=== PATIENT | female | born 1990 | race Caucasian/White ===

== ENCOUNTER 2018-10-23 10:14 | Emergency (ER) | payer OTHER ==
--- OUTSIDE RECORDS SUMMARY | 2018-10-23 10:16 | XMS REPORT | Clinical Summary ---
:1990 Author Organization [facility] Address [address] [place] [address] Care Team Providers Name Role Phone Asked, No Pcp Primary Care Provider Unavailable Allergies No Known Allergies Medications No known medications Active Problems No known active problems Encounters Date Type Specialty Care Team Description 05/30/2018 Telephone Obstetrics and Gynecology Held, Ronda Mayers MD after 10/22/2017 Family History Medical History Relation Name Comments Heart disease Maternal Grandmother Relation Name Status Comments Maternal Grandmother Social History Tobacco Use Types Packs/Day Years Used Date Never Smoker Alcohol Use Drinks/Week oz/Week Comments Yes Sex Assigned at Date Recorded Not on file Job Start Date Occupation Industry Not on file Not on file Not on file Travel History Travel Start Travel End No recent travel history available. Last Filed Vital Signs Not on file Plan of Treatment Health Maintenance Due Date Last Done Comments INFLUENZA VACCINE 12/07/2018 Results Not on fileafter 10/22/2017 Advance Directives Patient has advance care planning documents on file. For more information, please contact:[facility] [place] [address]
--- NOTE | 2018-10-23 11:20 | RAD REPORT ---
EXAM DESCRIPTION: RAD - Chest Single View - 10/23/2018 11:07 am CLINICAL HISTORY: chest tightness Chest pain. COMPARISON: No comparisons FINDINGS: Portable technique limits examination quality. The lungs are grossly clear. The heart is normal in size. No displaced fractures. IMPRESSION: No acute intrathoracic process suspected.
[2018-10-23 11:30] LABS: Absolute Lymphocytes (CBC) 1.8 K/uL (0.7-4.9); Basophils % 0.7 % (0-1.3); Eosinophils % 4.2 % (0-4.4); Hematocrit 38.6 % (36.0-45.0); MPV 7.8 fL (7.6-11.3); Monocytes % 9.2 % (3.3-12.3); Protime INR 0.92; RBC Red Blood Cell Count 4.29 M/uL (3.86-4.86)
[2018-10-23] MEDS ORDERED: ASPIRIN 81 MG CHEWABLE TABLET ONE (11:30)
[2018-10-23 11:45] LABS: ALT/SGPT 29 U/L (12-78); AST/SGOT 18 U/L (15-37); Albumin 3.6 g/dL (3.4-5.0); Alkaline Phosphatase 93 U/L (45-117); BUN Blood Urea Nitrogen 17 mg/dL (7-18); Bicarbonate 25 mmol/L (21-32); Bilirubin Direct < 0.1 mg/dL (0-0.2); Bilirubin Total 0.3 mg/dL (0.2-1.0); Glucose Level 86 mg/dL (74-106); Magnesium 2.2 mg/dL (1.8-2.4); NT PRO-BNP 153 pg/mL (<125); Potassium 3.8 mmol/L (3.5-5.1); Protein, Total 7.6 g/dL (6.4-8.2); Sodium Level 140 mmol/L (136-145); Troponin (Emerg Dept Use Only) < 0.02 ng/mL (0.0-0.045)
[2018-10-23 11:59] LABS: Urine Blood NEGATIVE (NEG); Urine Glucose NEGATIVE (NEG); Urine Protein NEGATIVE (NEG)
--- NOTE | 2018-10-23 12:37 | EKG ---
Test Date: 2018-10-23 Test Time: 10:29:00 Process Improvement Manager: KORI MEASUREMENT RESULTS: Intervals: Rate: 91 NE: 142 QRSD: 72 QT: 360 QTc: 442 [place]: P: 32 NE: 142 QRS: 31 T: 43 INTERPRETIVE STATEMENTS: Normal sinus rhythm Normal ECG No previous ECG available for comparison Electronically Signed On 10-23-18 12:36:21 CDT by Jeffrey Medina
--- NOTE | 2018-10-23 14:59 | ER ---
Nurse's Notes [facility] Name: Sol Gresham Age: 28 yrs Sex: Female : 1990 Arrival Date: 10/23/2018 Time: 10:16 Bed 18 Private MD: None, None Diagnosis: Other chest pain Presentation: 10/23 10:20 Presenting complaint: Patient states: CHEST PAIN RADIATING TO LEFT ARM. Transition of bp care: patient was not received from another setting of care. Onset of symptoms was October 23, 2018 at 10:00. Risk Assessment: Do you want to hurt yourself or someone else? Patient reports no desire to harm self or others. Initial Sepsis Screen: Does the patient meet any 2 criteria? No. Patient's initial sepsis screen is negative. Does the patient have a suspected source of infection? No. Patient's initial sepsis screen is negative. Care prior to arrival: None. 10:20 Acuity: KEESHA 2 bp 10:20 Method Of Arrival: Ambulatory bp Triage Assessment: 10:23 General: Appears in no apparent distress. comfortable, Behavior is cooperative, bp appropriate for age, anxious. Pain: Complains of pain in chest. Cardiovascular: Chest pain is described as Pain is 6 out of 10 on a pain scale. quality is squeezing, is located in substernal area radiates to left arm(s). 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 - Social history:: Smoking status: Patient/guardian denies using tobacco. - Ebola Screening: : No symptoms or risks identified at this time. Screenin:20 Abuse screen: Denies threats or abuse. Denies injuries from another. Nutritional hj screening: No deficits noted. Tuberculosis screening: No symptoms or risk factors identified. Fall Risk None identified. Assessment: 10:20 Pain: Pain radiates to left arm Pain began 1 day ago. hj 10:20 General: Appears in no apparent distress. uncomfortable, Behavior is cooperative, hj appropriate for age, anxious. Neuro: Level of Consciousness is awake, alert, obeys commands, Oriented to person, place, time, situation, Appropriate for age. Cardiovascular: Capillary refill < 3 seconds Patient's skin is warm and dry. Respiratory: Airway is patent Respiratory effort is even, unlabored, Respiratory pattern is regular, symmetrical. GI: No signs and/or symptoms were reported involving the gastrointestinal system. : No signs and/or symptoms were reported regarding the genitourinary system. EENT: No signs and/or symptoms were reported regarding the EENT system. Derm: Musculoskeletal: No signs and/or symptoms reported regarding the musculoskeletal system. 11:42 Reassessment: Patient and/or family updated on plan of care and expected duration. Pain hj level reassessed. Patient is alert, oriented x 3, equal unlabored respirations, skin warm/dry/pink. awaiting results and POC;. Vital Signs: 10:24 BP 140 / 85; Pulse 97; Resp 20; Temp 97.7; Pulse Ox 97% ; Weight 106.59 kg; Height 5 bp ft. 4 in. (162.56 cm); 11:18 BP 135 / 94; Pulse 95; Resp 20; Pulse Ox 100% on R/A; hj 12:30 BP 125 / 80; Pulse 80; Resp 18; Pulse Ox 100% on R/A; hj 13:25 BP 118 / 79; Pulse 72; Resp 18; Pulse Ox 100% on R/A; hj 14:58 BP 125 / 80; Pulse 69; Resp 18; Pulse Ox 100% on R/A; hj 10:24 Body Mass Index 40.34 (106.59 kg, 162.56 cm) bp ED Course: 10:16 Patient arrived in ED. mr 10:17 None, None is Private Physician. mr 10:20 software test engineer on. Pulse ox on. NIBP on. hj 10:20 Patient has correct armband on for positive identification. Placed in gown. Bed in low hj position. Call light in reach. Side rails up X 1. Adult w/ patient. 10:20 Patient maintains SpO2 saturation greater than 95% on room air. hj 10:21 Triage completed. bp 10:24 Raul Boothe PA is PHCP. cp 10:24 Balbir Higgins MD is Attending Physician. cp 10:24 Arm band placed on. bp 10:46 Jewel, Claude, RN is Primary Nurse. hj 11:09 XRAY Chest (1 view) In Process Unspecified. EDWY 11:15 Initial lab(s) drawn, by ED staff, sent to lab. Inserted saline lock: 22 gauge in right hj forearm, using aseptic technique. Blood collected. 11:51 Urine collected: clean catch specimen, clear, sediment noted. 3 14:01 EKG done, by hazmat technician. reviewed by Raul PRIETO. dt2 14:35 Troponin I Sent. 14:57 No provider procedures requiring assistance completed. IV discontinued, intact, hj bleeding controlled, No redness/swelling at site. Pressure dressing applied. Administered Medications: 10:45 Drug: Aspirin Chewable Tablet 324 mg Route: PO; 11:46 Follow up: Response: No adverse reaction Outcome: 14:58 Discharged to home ambulatory. 14:58 Condition: stable 14:58 Discharge instructions given to patient, Instructed on discharge instructions, follow up and referral plans. Demonstrated understanding of instructions, follow-up care. 14:58 Discharge ordered by . [email or web address] 15:08 Patient left the ED. Signatures: Dispatcher [employer] EDWY Fabiola Joseph Henry, RN RN Raul Grissom PA PA cp Herrera, Deanna 3 Dexter Lund RN RN Isabel Parmar dt2
--- NOTE | 2018-10-23 14:59 | EDPHYS ---
Physician Documentation [facility] Name: Sol Gresham Age: 28 yrs Sex: Female : 1990 Arrival Date: 10/23/2018 Time: 10:16 Bed 18 Private MD: None, None ED Physician Balbir Higgins HPI: 10/23 10:40 This 28 yrs old Female presents to ER via Ambulatory with complaints of Chest cp Tightness, Numbness Of Arm. 10:45 The patient or guardian reports chest pain that is located primarily in the anterior cp chest wall, left. The pain radiates to the left arm. Associated signs and symptoms: Pertinent positives: numbness/tingling of left arm. The chest pain is described as tightness. Duration: The patient or guardian reports a single episode, that is still ongoing, but improving. Patient reports she was at work and became upset with ex-. Patient reported sudden onset chest tightness with pain and numbness to left arm about 30 minutes ago. 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 - Social history:: Smoking status: Patient/guardian denies using tobacco. - Ebola Screening: : No symptoms or risks identified at this time. ROS: 10:45 Constitutional: Negative for body aches, chills, fever, poor PO intake. cp 10:45 Eyes: Negative for injury, pain, redness, and discharge. cp 10:45 ENT: Negative for drainage from ear(s), ear pain, sore throat, difficulty swallowing, difficulty handling secretions. 10:45 Cardiovascular: Positive for chest pain, Negative for edema, palpitations. 10:45 Respiratory: Negative for cough, shortness of breath, wheezing. 10:45 Abdomen/GI: Negative for abdominal pain, vomiting, diarrhea, constipation. 10:45 Back: Negative for pain at rest, pain with movement. 10:45 MS/extremity: Positive for pain, paresthesias, of the left arm, Negative for injury or acute deformity, decreased range of motion. 10:45 Neuro: Negative for altered mental status, dizziness, gait disturbance, syncope, weakness. 10:45 All other systems are negative. Exam: 10:43 ECG was reviewed by the Attending Physician. cp 10:50 Constitutional: The patient appears in no acute distress, alert, awake, cp non-diaphoretic, non-toxic, well developed, well nourished, obese. 10:50 Head/Face: Normocephalic, atraumatic. cp 10:50 Eyes: Pupils equal round and reactive to light, extra-ocular motions intact. Lids and lashes normal. Conjunctiva and sclera are non-icteric and not injected. Cornea within normal limits. Periorbital areas with no swelling, redness, or edema. 10:50 ENT: External ear(s): are unremarkable, Nose: is normal, Mouth: Lips: moist, Oral mucosa: pink and intact, moist, Posterior pharynx: is normal, airway is patent, no erythema, no exudate, Voice: is normal. 10:50 Neck: ROM/movement: is normal, is supple, without pain, no range of motions limitations, no meningismus, no nuchal rigidity. 10:50 Chest/axilla: Inspection: normal, Palpation: is normal, no crepitus, no tenderness. 10:50 Cardiovascular: Rate: normal, Rhythm: regular, Pulses: Pulses are 2+ in right radial artery and left radial artery. Heart sounds: murmur, not appreciated, Edema: is not appreciated, JVD: is not appreciated. 10:50 Respiratory: the patient does not display signs of respiratory distress, Respirations: cp normal, no use of accessory muscles, no retractions, no splinting, no tachypnea, labored breathing, is not present, Breath sounds: are clear throughout, no decreased breath sounds, no stridor, no wheezing. 10:50 Abdomen/GI: Inspection: abdomen appears normal, Bowel sounds: active, all quadrants, cp Palpation: abdomen is soft and non-tender, in all quadrants, voluntary guarding, is not appreciated, involuntary guarding, is not appreciated. 10:50 Back: pain, is absent, ROM is normal. 10:50 Musculoskeletal/extremity: ROM: intact in all extremities, Pulses: noted to be 2+ in the right radial artery and left radial artery, the left arm Tingling of extremity. 10:50 Skin: no rash present. 10:50 Neuro: Orientation: to person, place \T\ time. Mentation: is normal, Cerebellar function: is grossly normal, Motor: moves all fours, strength is normal. 13:56 ECG was reviewed by the Attending Physician. cp Vital Signs: 10:24 BP 140 / 85; Pulse 97; Resp 20; Temp 97.7; Pulse Ox 97% ; Weight 106.59 kg; Height 5 bp ft. 4 in. (162.56 cm); 11:18 BP 135 / 94; Pulse 95; Resp 20; Pulse Ox 100% on R/A; hj 12:30 BP 125 / 80; Pulse 80; Resp 18; Pulse Ox 100% on R/A; hj 13:25 BP 118 / 79; Pulse 72; Resp 18; Pulse Ox 100% on R/A; hj 14:58 BP 125 / 80; Pulse 69; Resp 18; Pulse Ox 100% on R/A; hj 10:24 Body Mass Index 40.34 (106.59 kg, 162.56 cm) bp MDM: 10:26 Patient medically screened. cp 11:00 Differential diagnosis: abnormal EKG, acute pericarditis, chest wall pain, cp cholecystitis, Cholelithiasis costochondritis, gastritis, pleurisy, pneumonia, pneumothorax, pulmonary embolus, stable angina, thoracic aortic disection, unstable angina. 14:55 Data reviewed: vital signs, nurses notes, lab test result(s), EKG, radiologic studies, cp plain films. 14:55 Test interpretation: by ED physician or midlevel provider: ECG, plain radiologic cp studies. Response to treatment: the patient's symptoms have markedly improved after treatment, and as a result, I will discharge patient. Special discussion: Based on the patient's history, exam, and Dx evaluation, there is no indication for emergent intervention or inpatient Tx. It is understood by the patient/guardian that if the Sx's persist or worsen they need to return immediately for re-evaluation. ED course: VSS. Pain and symptoms markedly improved with treatment. Will discharge to home for continued monitoring. 10/23 10:41 Order name: Basic Metabolic Panel; Complete Time: 11:53 cp 10/23 11:53 Interpretation: Normal except: CL 108; GFR 85. cp 10/23 10:41 Order name: CBC with Diff; Complete Time: 11:53 cp 10/23 10:41 Order name: LFT's; Complete Time: 11:53 cp 10/23 10:41 Order name: Magnesium; Complete Time: 11:53 cp 10/23 10:41 Order name: NT PRO-BNP; Complete Time: 11:53 cp 10/23 10:41 Order name: PT-INR; Complete Time: 11:53 cp 10/23 10:41 Order name: Troponin (emerg Dept Use Only); Complete Time: 11:53 cp 10/23 11:53 Interpretation: Reviewed. cp 10/23 10:41 Order name: XRAY Chest (1 view); Complete Time: 11:53 cp 10/23 10:41 Order name: EKG; Complete Time: 10:46 cp 10/23 11:54 Order name: Urine Dipstick--Ancillary (enter results) bd 10/23 11:54 Order name: Urine --Ancillary (enter results) bd 10/23 13:43 Order name: EKG; Complete Time: 13:46 cp 10/23 13:43 Order name: Troponin I; Complete Time: 14:51 cp 10/23 14:51 Interpretation: Reviewed. cp 10/23 10:41 Order name: Cardiac monitoring; Complete Time: 11:03 cp 10/23 10:41 Order name: EKG - Nurse/Tech; Complete Time: 11:03 cp 10/23 10:41 Order name: IV Saline Lock; Complete Time: 11:19 cp 10/23 10:41 Order name: Labs collected and sent; Complete Time: 11:19 cp 10/23 10:41 Order name: O2 Per Protocol; Complete Time: 11:03 cp 10/23 10:41 Order name: O2 Sat Monitoring; Complete Time: 11:03 cp 10/23 10:41 Order name: Urine Dipstick-Ancillary (obtain specimen); Complete Time: 11:46 cp 10/23 10:41 Order name: Urine Test (obtain specimen); Complete Time: 11:46 cp 10/23 10:42 Order name: Blood Pressure Recheck: bilateral arm; Complete Time: 11:19 cp 10/23 13:43 Order name: EKG - Nurse/Tech; Complete Time: 14:35 cp EC:43 Rate is 91 beats/min. Rhythm is regular. IL interval is normal. QRS interval is normal. cp QT interval is normal. Interpreted by me. Reviewed by me. 13:56 Rate is 57 beats/min. Rhythm is regular. IL interval is normal. QRS interval is normal. cp QT interval is normal. Interpreted by me. Reviewed by me. Administered Medications: 10:45 Drug: Aspirin Chewable Tablet 324 mg Route: PO; hj 11:46 Follow up: Response: No adverse reaction Disposition: 15:50 Co-signature as Attending Physician, Balbir Higgins MD. rn Disposition: 10/23/18 14:58 Discharged to Home. Impression: Other chest pain. - Condition is Stable. - Discharge Instructions: Nonspecific Chest Pain. - Prescriptions for Ibuprofen 800 mg Oral Tablet - take 1 tablet by ORAL route every 8 hours As needed take with food; 30 tablet. - Work release form, Medication Reconciliation Form, Thank You Letter, Antibiotic Education, Prescription Opioid Use form. - Follow up: Private Physician; When: 2 - 3 days; Reason: Recheck today's complaints. - Problem is new. - Symptoms have improved. Signatures: Dispatcher [employer] EDWY Balbir Higgins MD MD rn Joaquin, Henry RN RN Raul Grissom PA PA Dexter Goodrich, RN RN bp Corrections: (The following items were deleted from the chart) 15:08 14:58 10/23/2018 14:58 Discharged to Home. Impression: Other chest pain. Condition is hj Stable. Forms are Medication Reconciliation Form, Thank You Letter, Antibiotic Education, Prescription Opioid Use. Follow up: Private Physician; When: 2 - 3 days; Reason: Recheck today's complaints. Problem is new. Symptoms have improved. cp
--- NOTE | 2018-10-23 22:23 | EKG ---
Test Date: 2018-10-23 Test Time: 13:55:02 Finishing Operator: DAVID MEASUREMENT RESULTS: Intervals: Rate: 57 NE: 156 QRSD: 74 QT: 452 QTc: 439 [place]: P: 37 NE: 156 QRS: 70 T: 44 INTERPRETIVE STATEMENTS: Sinus bradycardia with sinus arrhythmia Otherwise normal ECG Compared to ECG 10/23/2018 10:29:00 Sinus rhythm no longer present Electronically Signed On 10-23-18 22:22:54 CDT by Jeffrey Medina
== END 2018-10-23 15:08 | disposition home or self-care (01) ==
LOC: ER 10:14
DX: R07.89 Other chest pain (principal)
CPT/HCPCS: 36415; 71045; 80048; 80076; 81003; 81025; 83735; 83880; 84484; 85025; 85610; 93005; 99285

== ENCOUNTER 2020-11-01 12:08 | Emergency (ER) | payer OTHER ==
[2020-11-01 14:29] LABS: Absolute Lymphocytes (CBC) 1.6 K/uL (0.7-4.9); Basophils % 0.4 % (0-1.3); Hematocrit 38.7 % (36.0-45.0); MPV 7.3 fL (7.6-11.3); RBC Red Blood Cell Count 4.38 M/uL (3.86-4.86)
[2020-11-01] MEDS ORDERED: ONDANSETRON 4 MG/2 ML VIAL ONE (14:37)
[2020-11-01] MEDS ORDERED: MORPHINE 4 MG/ML SYR ONE ×2 (14:37→16:45)
[2020-11-01] MEDS ORDERED: NA CHLORIDE 0.9% 1,000 ML ONE (14:37)
[2020-11-01] MEDS ORDERED: FAMOTIDINE 20 MG/2 ML VIAL IV ONE (14:38)
[2020-11-01 14:55] LABS: ALT/SGPT 25 U/L (12-78); AST/SGOT 13 U/L (15-37); Albumin 3.4 g/dL (3.4-5.0); Alkaline Phosphatase 74 U/L (45-117); BUN Blood Urea Nitrogen 15 mg/dL (7-18); Bicarbonate 29 mmol/L (21-32); Bilirubin Direct 0.2 mg/dL (0-0.2); Bilirubin Total 0.5 mg/dL (0.2-1.0); Glucose Level 92 mg/dL (74-106); Lipase 49 U/L (73-393); Magnesium 2.3 mg/dL (1.8-2.4); Protein, Total 7.7 g/dL (6.4-8.2); Sodium Level 135 mmol/L (136-145)
--- NOTE | 2020-11-01 15:35 | RAD REPORT ---
EXAM DESCRIPTION: CT - Abdomen Pelvis W Contrast - 11/01/2020 3:25 pm CLINICAL HISTORY: ABD PAIN COMPARISON: No comparisons TECHNIQUE: Biphasic, helical CT imaging of the abdomen and pelvis was performed following 100 ml non -ionic IV contrast. Oral contrast was given. All CT scans are performed using dose optimization technique as appropriate and may include automated exposure control or mA/KV adjustment according to patient size. FINDINGS: No suspicious findings in the lung bases. The liver, spleen, and pancreas show no suspicious findings. A 15 millimeter gallstone present withou t wall thickening, edema or acute gallbladder finding. No biliary tree dilatation. Symmetric renal function is seen with no hydronephrosis or suspicious renal mass. No pyelonephritis o r acute parenchymal process. No bladder abnormalities. No adrenal abnormalities. No uterine abnormali ty. A 2 centimeter right-side and 1.8 centimeter left-sided ovarian cyst present No stomach, duodenum or jejunum abnormality. The distal half of the ileum including the terminal ileu m shows pronounced circumferential wall thickening and edema. The appendix is normal. No colon involv ement. No free air or pneumatosis. Free fluid is present in the pelvis. Numerous reactive lymph node seen in the right lower quadrant. No hernia, mass or bulky lymphadenopathy. No suspicious bony findings. IMPRESSION: Pronounced ileitis pattern involving the majority of the ileum. No appendix or cecum inv olvement.
[2020-11-01] MEDS ORDERED: PANTOPRAZOLE 40 MG INJ ONE (16:45)
[2020-11-01] MEDS ORDERED: WATER FOR INJ,STERILE 10 ML ONE (16:45)
--- NOTE | 2020-11-01 16:49 | EDPHYS ---
Physician Documentation [facility] Name: Sol Gresham Age: 30 yrs Sex: Female : 1990 Arrival Date: 11/01/2020 Time: 12:10 Bed 13 Private MD: ED Physician Raul Medina HPI: 11/01 13:40 This 30 yrs old Female presents to ER via Ambulatory with complaints of cp Abdominal Pain. 13:40 The patient presents with abdominal pain that is diffuse. cp 13:40 Onset: The symptoms/episode began/occurred 3 day(s) ago. Associated signs and symptoms: cp Pertinent positives: nausea, vomiting, and diarrhea, Pertinent negatives: blood in stools, constipation, vomiting blood. The symptoms are described as constant. The patient has not experienced similar symptoms in the past. 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 - Social history:: Smoking status: Reported history of juuling and/or vaping. Patient denies any tobacco usage or history of. ROS: 13:45 Constitutional: Negative for body aches, chills, fever, poor PO intake. cp 13:45 Eyes: Negative for injury, pain, redness, and discharge. cp 13:45 ENT: Negative for ear pain, sore throat, difficulty swallowing, difficulty handling secretions. 13:45 Cardiovascular: Negative for chest pain, palpitations. 13:45 Respiratory: Negative for cough, shortness of breath, wheezing. 13:45 Abdomen/GI: Positive for abdominal pain, nausea, vomiting, and diarrhea, Negative for constipation, hematemesis, black/tarry stool, rectal bleeding. 13:45 : Negative for urinary symptoms, vaginal bleeding, vaginal discharge. 13:45 Neuro: Negative for altered mental status, headache, weakness. 13:45 All other systems are negative. Exam: 13:50 Head/Face: Normocephalic, atraumatic. cp 13:50 Constitutional: The patient appears in no acute distress, alert, awake, non-toxic, well developed, well nourished, uncomfortable. 13:50 Eyes: Periorbital structures: appear normal, Conjunctiva: normal, no exudate, no injection, Sclera: no appreciated abnormality, Lids and lashes: appear normal, bilaterally. 13:50 ENT: External ear(s): are unremarkable, Nose: is normal, Mouth: Lips: moist, Oral mucosa: moist, Posterior pharynx: Airway: no evidence of obstruction, patent. 13:50 Chest/axilla: Inspection: normal, Palpation: is normal, no crepitus, no tenderness. 13:50 Cardiovascular: Rate: normal, Rhythm: regular. 13:50 Respiratory: the patient does not display signs of respiratory distress, Respirations: normal, no use of accessory muscles, no retractions, labored breathing, is not present, Breath sounds: are clear throughout, no decreased breath sounds. 13:50 Abdomen/GI: Inspection: abdomen appears normal, Bowel sounds: active, all quadrants, Palpation: soft, in all quadrants, severe abdominal tenderness, in all quadrants, rebound tenderness, is not appreciated, voluntary guarding, is elicited in all quadrants. 13:50 Back: pain, is absent. Vital Signs: 12:29 BP 113 / 67; Pulse 71; Resp 17; Temp 98.2; Pulse Ox 99% on R/A; Weight 81.65 kg; Height ll1 5 ft. 4 in. (162.56 cm); Pain 9/10; 14:00 BP 124 / 84; Pulse 80; Resp 17 S; Pulse Ox 99% on R/A; ca1 15:29 BP 118 / 76; Pulse 76; Resp 15 S; Pulse Ox 99% on R/A; ca1 17:15 BP 123 / 74; Pulse 63; Resp 18 S; Pulse Ox 100% on R/A; ca1 12:29 Body Mass Index 30.90 (81.65 kg, 162.56 cm) ll1 MDM: 13:30 Patient medically screened. vishnu 14:00 Differential diagnosis: appendicitis, cholecystitis, Cholelithiasis, gastritis, cp pancreatitis, Ureterolithiasis, urinary tract infection. 16:45 Data reviewed: vital signs, nurses notes, lab test result(s), radiologic studies, CT cp scan. 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 Response to treatment: the patient's symptoms have markedly improved after treatment, VSS. Pain markedly improved. Patient tolerating po fluids. Will discharge to home for continued monitoring. 16:47 ED course: review of [place] prescription monitor program website: narcotic score 000, cp sedative score 000, overdose risk score 000. 11/01 13:45 Order name: Basic Metabolic Panel; Complete Time: 15:36 11/01 15:42 Interpretation: Abnormal: NA 135. 11/01 13:45 Order name: CBC with Diff; Complete Time: 15:36 11/01 15:42 Interpretation: Normal except: RDW 11.9; MPV 7.3. 11/01 13:45 Order name: Hepatic Function; Complete Time: 15:36 11/01 13:45 Order name: Lipase; Complete Time: 15:36 11/01 13:45 Order name: Urine Microscopic Only 11/01 13:45 Order name: Magnesium; Complete Time: 15:36 11/01 13:45 Order name: CT Abd/Pelvis - IV Contrast Only; Complete Time: 15:41 11/01 17:03 Order name: Urine Dipstick-Ancillary EDCO 11/01 13:45 Order name: IV Saline Lock; Complete Time: 14:26 11/01 13:45 Order name: Labs collected and sent; Complete Time: 14:26 11/01 13:45 Order name: Urine Dipstick-Ancillary (obtain specimen); Complete Time: 17:09 11/01 13:45 Order name: Urine Test (obtain specimen); Complete Time: 17:09 11/01 16:02 Order name: PO challenge; Complete Time: 16:06 cp Administered Medications: 14:17 Drug: NS 0.9% 1000 ml Route: IV; Rate: 1 bolus; Site: right antecubital; ca1 15:20 Follow up: Response: No adverse reaction; IV Status: Completed infusion; IV Intake: ca1 1000ml 14:19 Drug: Pepcid (famotidine) 20 mg Route: IVP; Site: right antecubital; ca1 15:00 Follow up: Response: No adverse reaction ca1 14:21 Drug: Zofran (Ondansetron) 4 mg Route: IVP; Site: right antecubital; ca1 15:00 Follow up: Response: No adverse reaction; Nausea is decreased; Vomiting decreased ca1 14:23 Drug: morphine 4 mg Route: IVP; Site: right antecubital; ca1 15:30 Follow up: Response: No adverse reaction; Pain is decreased; RASS: Alert and Calm (0) ca1 16:25 Drug: ProTONIX (pantoprazole) 40 mg Route: IVP; Site: right antecubital; ca1 17:14 Follow up: Response: No adverse reaction ca1 16:28 Drug: morphine 4 mg {Note: rass 0.} Route: IVP; Site: right antecubital; ca1 17:14 Follow up: Response: No adverse reaction; Pain is decreased; RASS: Alert and Calm (0) ca1 Disposition: 21:19 Co-signature as Attending Physician, Raul Medina MD I agree with the assessment and vishnu plan of care. Disposition: 11/01/20 16:48 Discharged to Home. Impression: Unspecified abdominal pain, Cholelithiasis. - Condition is Stable. - Discharge Instructions: Gastritis, Adult, Cholelithiasis. - Prescriptions for Zofran 4 mg Oral Tablet - take 1 tablet by ORAL route every 12 hours As needed; 20 tablet. Cipro 500 mg Oral Tablet - take 1 tablet by ORAL route every 12 hours for 7 days; 14 tablet. Tylenol- Codeine #3 300-30 mg Oral Tablet - take 2 tablets by ORAL route every 6-8 hours As needed; 15 tablet. - Medication Reconciliation Form, Thank You Letter, Antibiotic Education, Prescription Opioid Use form. - Follow up: Carlos Mcarthur MD; When: 2 - 3 days; Reason: Recheck today's complaints. - Problem is new. - Symptoms have improved. Signatures: Dispatcher [employer] aRul Scott MD MD cha Page, Corey, PA PA cp Acob, Cheryl, RN RN ca1 Koko Welch RN RN ll1 Corrections: (The following items were deleted from the chart) 17:16 16:48 11/01/2020 16:48 Discharged to Home. Impression: Unspecified abdominal pain; ca1 Cholelithiasis. Condition is Stable. Forms are Medication Reconciliation Form, Thank You Letter, Antibiotic Education, Prescription Opioid Use. Follow up: Carlos Mcarthur; When: 2 - 3 days; Reason: Recheck today's complaints. Problem is new. Symptoms have improved. cp : 13:45 Abdomen/GI: Positive for abdominal pain, cp cp :10/31 13:50 Constitutional: The patient appears in no acute distress, alert, awake, cp non-toxic, well developed, well nourished, uncomfortable, cp 11/01 21:10/31 13:50 Head/Face: Normocephalic, atraumatic. cp cp 11/01 21:10/31 13:50 Eyes: Periorbital structures: appear normal, Conjunctiva: normal, no cp exudate, no injection, Sclera: no appreciated abnormality, Lids and lashes: appear normal, bilaterally, cp 11/01 21:10/31 13:50 ENT: External ear(s): are unremarkable, Nose: is normal, Mouth: Lips: cp moist, Oral mucosa: moist, Posterior pharynx: Airway: no evidence of obstruction, patent, cp 11/01 21:10/31 13:50 Chest/axilla: Inspection: normal, Palpation: is normal, no crepitus, no cp tenderness, cp 11/01 21:10/31 13:50 Cardiovascular: Rate: normal, Rhythm: regular, cp cp 11/01 22:10/31 13:50 Respiratory: the patient does not display signs of respiratory distress, cp Respirations: normal, no use of accessory muscles, no retractions, labored breathing, is not present, Breath sounds: are clear throughout, no decreased breath sounds, cp 11/01 21:10/31 13:50 Abdomen/GI: Inspection: abdomen appears normal, Bowel sounds: active, all cp quadrants, Palpation: soft, in all quadrants, severe abdominal tenderness, in all quadrants, rebound tenderness, is not appreciated, voluntary guarding, is elicited in all quadrants, cp 11/01 21:10/31 13:50 Back: pain, is absent, cp cp
--- NOTE | 2020-11-01 16:49 | ER ---
Nurse's Notes [facility] Name: Sol Gresham Age: 30 yrs Sex: Female : 1990 Arrival Date: 11/01/2020 Time: 12:10 Bed 13 Private MD: Diagnosis: Unspecified abdominal pain;Cholelithiasis Presentation: 11/01 12:28 Coronavirus screen: Client denies travel out of the [place] in the last 14 days. At this ll1 time, the client does not indicate any symptoms associated with coronavirus-19. Ebola Screen: Patient denies travel to an Ebola-affected area in the 21 days before illness onset. 12:28 Method Of Arrival: Ambulatory ll1 12:29 Chief complaint: Patient states: Abd pain with N/V/D for 3 days. Feels hot at home, no ll1 thermometer. States sharp pain to mid abdomen. Initial Sepsis Screen: Does the patient meet any 2 criteria? No. Patient's initial sepsis screen is negative. Does the patient have a suspected source of infection? Yes: Acute abdominal pain. Risk Assessment: Do you want to hurt yourself or someone else? Patient reports no desire to harm self or others. Onset of symptoms was October 30, 2020. 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 - Social history:: Smoking status: Reported history of juuling and/or vaping. Patient denies any tobacco usage or history of. Screenin:42 Abuse screen: Denies threats or abuse. Denies injuries from another. Nutritional ca1 screening: No deficits noted. Tuberculosis screening: No symptoms or risk factors identified. Fall Risk IV access (20 points). Total Haq Fall Scale indicates No Risk (0-24 pts). Assessment: 13:42 General: Appears in no apparent distress. uncomfortable, Behavior is calm, cooperative, ca1 appropriate for age. Pain: Complains of pain in abdomen Pain currently is 9 out of 10 on a pain scale. Quality of pain is described as sharp, Pain began 2-3 days ago. Is intermittent. Neuro: Level of Consciousness is awake, alert, obeys commands, Oriented to person, place, time. Cardiovascular: Heart tones S1 S2 present. Respiratory: Airway is patent Respiratory effort is even, unlabored, Respiratory pattern is regular, symmetrical. GI: Abdomen is round non-distended, Bowel sounds present X 4 quads. Abd is soft X 4 quads Abdomen is tender to palpation X 4 quads. Reports diarrhea, nausea, vomiting. : No signs and/or symptoms were reported regarding the genitourinary system. EENT: No signs and/or symptoms were reported regarding the EENT system. Derm: Skin is intact, is healthy with good turgor, Skin is pink, warm \T\ dry. Musculoskeletal: Circulation, motion, and sensation intact. Capillary refill < 3 seconds. 14:36 Reassessment: Patient appears in no apparent distress at this time. Patient and/or ca1 family updated on plan of care and expected duration. Pain level reassessed. Patient is alert, oriented x 3, equal unlabored respirations, skin warm/dry/pink. 15:29 Reassessment: Patient appears in no apparent distress at this time. Patient and/or ca1 family updated on plan of care and expected duration. Pain level reassessed. Patient is alert, oriented x 3, equal unlabored respirations, skin warm/dry/pink. 16:30 Reassessment: Patient appears in no apparent distress at this time. Patient and/or ca1 family updated on plan of care and expected duration. Pain level reassessed. Patient is alert, oriented x 3, equal unlabored respirations, skin warm/dry/pink. 17:15 Reassessment: Patient appears in no apparent distress at this time. Patient is alert, ca1 oriented x 3, equal unlabored respirations, skin warm/dry/pink. Patient states feeling better. Vital Signs: 12:29 BP 113 / 67; Pulse 71; Resp 17; Temp 98.2; Pulse Ox 99% on R/A; Weight 81.65 kg; Height ll1 5 ft. 4 in. (162.56 cm); Pain 9/10; 14:00 BP 124 / 84; Pulse 80; Resp 17 S; Pulse Ox 99% on R/A; ca1 15:29 BP 118 / 76; Pulse 76; Resp 15 S; Pulse Ox 99% on R/A; ca1 17:15 BP 123 / 74; Pulse 63; Resp 18 S; Pulse Ox 100% on R/A; ca1 12:29 Body Mass Index 30.90 (81.65 kg, 162.56 cm) ll1 ED Course: 12:10 Patient arrived in ED. as 12:29 Arm band placed on. ll1 12:31 Triage completed. ll1 13:29 Patient placed in an exam room, on a stretcher. iw 13:30 Raul Boothe PA is PHCP. cp 13:30 Raul Medina MD is Attending Physician. cp 13:39 Marisa Borges, BRENDAN is Primary Nurse. ca1 13:42 Patient has correct armband on for positive identification. Placed in gown. Bed in low ca1 position. Call light in reach. Side rails up X2. Pulse ox on. NIBP on. Warm blanket given. 14:15 Initial lab(s) drawn, by me, sent to lab. Inserted saline lock: 22 gauge in right ca1 antecubital area, using aseptic technique. Blood collected. 15:06 Radiology exam delayed due to test not completed at this time. mw3 15:25 CT Abd/Pelvis - IV Contrast Only In Process Unspecified. EDMS 16:47 Carlos Mcarthur MD is Referral Physician. cp 17:15 No provider procedures requiring assistance completed. IV discontinued, intact, ca1 bleeding controlled, No redness/swelling at site. Pressure dressing applied. Administered Medications: 14:17 Drug: NS 0.9% 1000 ml Route: IV; Rate: 1 bolus; Site: right antecubital; ca1 15:20 Follow up: Response: No adverse reaction; IV Status: Completed infusion; IV Intake: ca1 1000ml 14:19 Drug: Pepcid (famotidine) 20 mg Route: IVP; Site: right antecubital; ca1 15:00 Follow up: Response: No adverse reaction ca1 14:21 Drug: Zofran (Ondansetron) 4 mg Route: IVP; Site: right antecubital; ca1 15:00 Follow up: Response: No adverse reaction; Nausea is decreased; Vomiting decreased ca1 14:23 Drug: morphine 4 mg Route: IVP; Site: right antecubital; ca1 15:30 Follow up: Response: No adverse reaction; Pain is decreased; RASS: Alert and Calm (0) ca1 16:25 Drug: ProTONIX (pantoprazole) 40 mg Route: IVP; Site: right antecubital; ca1 17:14 Follow up: Response: No adverse reaction ca1 16:28 Drug: morphine 4 mg {Note: rass 0.} Route: IVP; Site: right antecubital; ca1 17:14 Follow up: Response: No adverse reaction; Pain is decreased; RASS: Alert and Calm (0) ca1 Intake: 15:20 IV: 1000ml; Total: 1000ml. ca1 Outcome: 16:48 Discharge ordered by MD. cp 17:15 Discharged to home ambulatory, with family. ca1 17:15 Condition: stable 17:15 Discharge instructions given to patient, Instructed on discharge instructions, follow up and referral plans. the need for transfer, no drinking with medication, no driving heavy equipment, Demonstrated understanding of instructions, follow-up care, medications, Prescriptions given X 2. 17:16 Patient left the ED. ca1 Signatures: Dispatcher [employer] EDMS Shira Bee Irene, RN RN iw Raul Boothe PA PA cp Willis, Michelle mw3 Marisa Borges RN RN ca1 Koko Welch RN RN ll1
[2020-11-01 17:03] LABS: Urine Blood 3+ (Negative); Urine Glucose Negative (Negative); Urine Protein Negative (Negative); Urine Specific Gravity <=1.005 (1.005-1.030); Urine pH 5.5 (5.0-7.0)
[2020-11-01 17:39] LABS: Urine Bacteria <20 /HPF (<20); Urine RBC <5 /HPF (NONE SEEN)
[2020-11-01 17:42] VITALS: TEMP 98.2
[2020-11-01 17:46] VITALS: BP 123/74; O2SAT 100
== END 2020-11-01 17:16 | disposition home or self-care (01) ==
LOC: ER 12:08
DX: K80.20 Calculus of gallbladder without cholecystitis without obstruction (principal)
CPT/HCPCS: 85025; 80048; 36415; 83735; 80076; 83690; 74177; Q9967; C9113; J7030; J2405; 81003; 81015; 96361; 96374; 96375; 99284

== ENCOUNTER 2020-12-01 20:20 | Emergency (ER) | payer OTHER ==
[2020-12-01 22:20] LABS: Urine Blood Negative (Negative); Urine Glucose Negative (Negative); Urine Protein Negative (Negative)
[2020-12-01] MEDS ORDERED: ACETAMINOPHEN 500 MG TAB ONE (22:28)
[2020-12-01 23:59] LABS: SARS-COV-2 RT PCR NEGATIVE (NEGATIVE)
[2020-12-02] MEDS ORDERED: dexAMETHasone 10 MG/ML VIAL ONE (00:21)
[2020-12-02] MEDS ORDERED: CEFTRIAXONE 1000 MG/VIAL ONE (01:25)
[2020-12-02] MEDS ORDERED: LIDOCAINE 1% MPF 2 ML AMPULE ONE (01:25)
--- NOTE | 2020-12-02 17:47 | ER ---
Nurse's Notes [facility] Name: Sol Gresham Age: 30 yrs Sex: Female : 1990 Arrival Date: 12/01/2020 Time: 20:23 Bed 12 Private MD: Diagnosis: Acute pharyngitis, unspecified;Acute serous otitis media, left ear Presentation: 12/01 21:56 Chief complaint: Patient states: Fever, chills, left ear pain, throat pain starting kg this am 12/01. Denies vomiting, diarrhea. Coronavirus screen: Client denies travel out of the [place] in the last 14 days. At this time, unable to obtain information related to travel outside the [place] At this time, the client does not indicate any symptoms associated with coronavirus-19. Ebola Screen: Patient negative for fever greater than or equal to 101.5 degrees Fahrenheit, and additional compatible Ebola Virus Disease symptoms Patient denies exposure to infectious person. Patient denies travel to an Ebola-affected area in the 21 days before illness onset. Initial Sepsis Screen: Does the patient meet any 2 criteria? Temp <36.0*C (96.8*F)) or > 38.3*C (100.9*F). HR > 90 bpm. Does the patient have a suspected source of infection? No. Patient's initial sepsis screen is negative. Risk Assessment: Do you want to hurt yourself or someone else? Patient reports no desire to harm self or others. Onset of symptoms was December 01, 2020 at 08:00. 21:56 Method Of Arrival: Ambulatory kg 21:56 Acuity: KEESHA 3 kg Triage Assessment: 21:59 General: Appears uncomfortable, Behavior is calm, cooperative, appropriate for age, kg quiet. Pain: Complains of pain in Left ear Pain radiates to Generalized. EENT: Reports difficulty swallowing since 12/01 Left ear pain. 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 - Social history:: Smoking status: Reported history of juuling and/or vaping. Patient/guardian denies using tobacco, Stopped _ months ago 1 Patient uses alcohol, only on a social basis. Screenin:03 Abuse screen: Denies threats or abuse. Denies injuries from another. Nutritional kg screening: No deficits noted. Tuberculosis screening: No symptoms or risk factors identified. Fall Risk None identified. Assessment: 12/02 00:00 General: Appears in no apparent distress. uncomfortable, Behavior is calm, cooperative, em appropriate for age, Reports fever for. Pain: Complains of pain in throat. Neuro: Level of Consciousness is awake, alert, obeys commands, Oriented to person, place, time, situation. Cardiovascular: Capillary refill < 3 seconds Patient's skin is warm and dry. Respiratory: Airway is patent Respiratory effort is even, unlabored, Respiratory pattern is regular, symmetrical. EENT: Reports difficulty swallowing. Derm: Skin is intact, is healthy with good turgor, Skin is pink, warm \T\ dry. Musculoskeletal: Capillary refill < 3 seconds, Range of motion: intact in all extremities. Vital Signs: 12/01 21:56 BP 117 / 72; Pulse 107; Resp 20; Temp 101.9(O); Pulse Ox 99% on R/A; Weight 83.42 kg kg (M); Height 5 ft. 3 in. (160.02 cm); Pain 7/10; 12/02 00:03 Temp 98.7(O); em 12/01 21:56 Body Mass Index 32.58 (83.42 kg, 160.02 cm) kg ED Course: 12/01 20:23 Patient arrived in ED. es 21:59 Triage completed. kg 21:59 Antipyretic given from triage as ordered by the ER provider. Arm band placed on right kg wrist. 22:03 Patient has correct armband on for positive identification. kg 22:35 Dimitry Zaidi PA is PHCP. jmm 22:35 Raul Medina MD is Attending Physician. jmsima 23:47 Bernard Guerrero, RN is Primary Nurse. em 12/02 01:08 No provider procedures requiring assistance completed. Patient did not have IV access em during this emergency room visit. Administered Medications: 12/01 22:04 Drug: Tylenol 1000 mg Route: PO; kg 12/02 00:03 Follow up: Response: No adverse reaction; Temperature is decreased em 00:03 Drug: Decadron (dexamethasone) 10 mg Route: IM; Site: right deltoid; em 01:08 Follow up: Response: No adverse reaction em 01:04 Drug: Rocephin (cefTRIAXone) 1 grams Route: IM; Site: right gluteus; em 01:08 Follow up: Response: Medication administered at discharge. em Outcome: 00:51 Discharge ordered by MD. edwards 01:08 Discharged to home ambulatory, with family. em 01:08 Condition: stable 01:08 Discharge instructions given to patient, family, Instructed on discharge instructions, follow up and referral plans. medication usage, Demonstrated understanding of instructions, follow-up care, medications, Prescriptions given X 1. 01:10 Patient left the ED. em Signatures: Dimitry Zaidi PA PA jmm Salyer, Edna es Munoz, Edgar RN RN Luh Lawrence RN RN kg
--- NOTE | 2020-12-02 17:47 | EDPHYS ---
Physician Documentation [facility] Name: Sol Gresham Age: 30 yrs Sex: Female : 1990 Arrival Date: 12/01/2020 Time: 20:23 Bed 12 Private MD: MATY Physician Raul Medina HPI: 12/02 00:48 This 30 yrs old Female presents to ER via Ambulatory with complaints of jmm Fever, Ear Pain, Sore Throat, Body sore. 00:48 Onset: The symptoms/episode began/occurred today. Modifying factors: there are no jmm obvious modifying factors. Associated signs and symptoms: Pertinent positives:. 30-year-old female with history of PCOS the presents emerged department with complaints of earache, sore throat, fever beginning today. Patient has had similar episodes in the past and is tested positive for strep. Patient is not immunized for coronavirus.. 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 - Social history:: Smoking status: Reported history of juuling and/or vaping. Patient/guardian denies using tobacco, Stopped _ months ago 1 Patient uses alcohol, only on a social basis. ROS: 12/02 00:48 Constitutional: Positive for fever. jmm ENT: Positive for ear pain, sore throat. Respiratory: Negative for cough. All other systems are negative. Exam: 00:48 Constitutional: This is a well developed, well nourished patient who is awake, alert, jmm and in no acute distress. Head/Face: atraumatic. Eyes: EOMI, no conjunctival erythema appreciated 00:48 Neck: Trachea midline, Supple Chest/axilla: Normal chest wall appearance and motion. Cardiovascular: Regular rate and rhythm. No edema appreciated Respiratory: Normal respirations, no respiratory distress appreciated Abdomen/GI: Non distended, soft Back: Normal ROM Skin: General appearance color normal MS/ Extremity: Moves all extremities, no obvious deformities appreciated, no edema noted to the lower extremities Neuro: Awake and alert, normal gait Psych: Behavior is normal, Mood is normal, Patient is cooperative and pleasant 00:48 ENT: TM's: erythema, that is moderate, on the left, Posterior pharynx: erythema, that is moderate. Vital Signs: 12/01 21:56 BP 117 / 72; Pulse 107; Resp 20; Temp 101.9(O); Pulse Ox 99% on R/A; Weight 83.42 kg kg (M); Height 5 ft. 3 in. (160.02 cm); Pain 7/10; 12/02 00:03 Temp 98.7(O); em 12/01 21:56 Body Mass Index 32.58 (83.42 kg, 160.02 cm) kg MDM: 12/01 23:55 Patient medically screened. [email or web address] 12/02 00:49 Data reviewed: vital signs, nurses notes. Counseling: I had a detailed discussion with jerry the patient and/or guardian regarding: the historical points, exam findings, and any diagnostic results supporting the discharge/admit diagnosis, lab results, the need for outpatient follow up, to return to the emergency department if symptoms worsen or persist or if there are any questions or concerns that arise at home. ED course: Patient is alert and nontoxic in appearance in the ED. Will treat with oral antibiotics. Covid negative. Patient is advised to follow-up PCP and otherwise given strict return precautions. Patient understood and agrees with plan of care.. 12/01 22:04 Order name: Strep; Complete Time: 00:51 kg 12/01 22:20 Order name: Urine Dipstick-Ancillary; Complete Time: 23:47 EDAK 12/01 22:21 Order name: Urine --Ancillary (enter results); Complete Time: 00:58 mw2 12/01 23:59 Order name: COVID-19/FLU A+B; Complete Time: 00:05 EDAK 12/01 22:21 Order name: Urine Dipstick-Ancillary (obtain specimen); Complete Time: 22:21 mw2 12/01 22:21 Order name: Urine Test (obtain specimen); Complete Time: 22:21 mw2 12/02 00:51 Order name: Throat Culture EDMS Administered Medications: 12/01 22:04 Drug: Tylenol 1000 mg Route: PO; kg 12/02 00:03 Follow up: Response: No adverse reaction; Temperature is decreased em 00:03 Drug: Decadron (dexamethasone) 10 mg Route: IM; Site: right deltoid; em 01:08 Follow up: Response: No adverse reaction em 01:04 Drug: Rocephin (cefTRIAXone) 1 grams Route: IM; Site: right gluteus; em 01:08 Follow up: Response: Medication administered at discharge. em Disposition: 07:09 Co-signature as Attending Physician, Raul Medina MD I agree with the assessment and [facility] plan of care. Disposition Summary: 12/02/20 00:51 Discharge Ordered Location: Home [facility] Condition: Stable [facility] Diagnosis - Acute pharyngitis, unspecified jmm - Acute serous otitis media, left ear [facility] Followup: [facility] - With: Private Physician - When: 2 - 3 days - Reason: Recheck today's complaints, Continuance of care, Re-evaluation by your physician Discharge Instructions: - Discharge Summary Sheet jmm - Otitis Media, Adult jm - Pharyngitis [facility] Forms: - Medication Reconciliation Form [facility] - Thank You Letter [facility] - Antibiotic Education [facility] - Prescription Opioid Use [facility] Prescriptions: - Augmentin 875-125 mg Oral Tablet - take 1 tablet by ORAL route every 12 hours for 10 days; 20 tablet; Refills: 0, [facility] Product Selection Permitted Signatures: Dispatcher [employer] Raul Scott MD MD cha Mickail, Joel, PA PA jmm Munoz, Edgar, RN RN Carrol FinnEvelyn 2 Luh Orantes, RN RN kg Corrections: (The following items were deleted from the chart) 12/01 22:51 22:04 Influenza Screen (A \T\ B)+BA.LAB.BRZ ordered. EDMS EDMS 22:52 22:04 CORONAVIRUS+MR.LAB.BRZ ordered. EDMS EDMS
[2020-12-03 17:09] VITALS: TEMP 98.7
[2020-12-03 17:14] VITALS: BP 117/72; O2SAT 99
== END 2020-12-02 01:10 | disposition home or self-care (01) ==
LOC: ER 20:20
DX: H65.02 Acute serous otitis media, left ear (principal); J02.9 Acute pharyngitis, unspecified; Z20.822 Contact with and (suspected) exposure to COVID-19
CPT/HCPCS: 87070; 81025; 87081; 81003; 0240U